=== PATIENT | female | born 1965 | race Caucasian/White ===

== ENCOUNTER 2024-07-27 23:37 | Emergency (ER) | payer MEDICAID ==
[~2024-07-27] VITALS: Ht 157.5 cm; Wt 59.0 kg
[2024-07-28] MEDS ORDERED: dexaMETHasone SOD PHOSPHATE 1 ML ONE (00:29)
[2024-07-28] MEDS: dexaMETHasone SOD PHOSPHATE 4 MG/ML VIAL IM ONE (00:30)
[2024-07-28 00:43] LABS: BASOPHILS % (AUTO) 0.6 % (0.0-2.0); EOSINOPHILS # (AUTO) 0.5 K/uL (0.0-0.7); EOSINOPHILS % (AUTO) 7.6 % (0.0-6.0); HEMATOCRIT 42 % (33-45); HEMOGLOBIN 14.1 g/dL (11.5-14.8); LYMPHOCYTES % (AUTO) 32.2 % (20.0-44.0); MEAN CORPUSCULAR HEMOGLOBIN 31 PG (26.0-33.0); MEAN CORPUSCULAR HGB CONC 33 g/dl (31.0-36.0); MEAN CORPUSCULAR VOLUME 93 fL (82-100); MONOCYTES # (AUTO) 0.5 K/uL (0.1-1.30); MONOCYTES % (AUTO) 7.3 % (2.0-12.0); NEUTROPHILS # (AUTO) 3.2 K/uL (1.8-8.9); NEUTROPHILS % (AUTO) 52.3 % (43.0-81.0); PLATELET COUNT (AUTO) 227 K/uL (150-450); RED BLOOD CELL COUNT(AUTO) 4.55 MIL/uL (4.0-5.2); RED CELL DISTRIBUTION WIDTH 13.8 % (11.5-15.0); WHITE BLOOD COUNT (AUTO) 6.2 K/uL (4.3-11.0)
[2024-07-28 00:57] LABS: CALCIUM, SERUM 8.8 mg/dL (8.5-10.1); CREATININE 0.6 mg/dL (0.6-1.3); POTASSIUM 3.9 mmol/L (3.5-5.1)
[2024-07-28] MEDS ORDERED: SULF1TAB48 PO (01:20)
[2024-07-28] MEDS ORDERED: CEPH-570 PO (01:20)
[2024-07-28] MEDS ORDERED: CEPHALEXIN MONOHYDRATE 500 MG CAPSULE PO ONE (01:28)
[2024-07-28] MEDS: CEPHALEXIN MONOHYDRATE 500 MG CAPSULE PO ONE (01:29)
[2024-07-28] MEDS ORDERED: SULFAMETH/TRIMETH 800/160 MG 1 UDTAB TABLET ONE (01:29)
[2024-07-28] MEDS: SULFAMETH/TRIMETH 800/160 MG 1 UDTAB TABLET PO ONE (01:29)
[2024-07-28 01:37] VITALS: BP 139/85; TEMP 98.2; O2SAT 99
== END 2024-07-28 01:40 | disposition home or self-care (01) ==
LOC: ER 23:52
DX: L03.211 Cellulitis of face (principal); H05.223 Edema of bilateral orbit
CPT/HCPCS: 99285; 70450; 96372; 85025; 80048; 36415; J1100

== ENCOUNTER 2024-08-23 20:33 | Emergency (ER) | payer MEDICAID ==
[~2024-08-23] VITALS: Ht 162.6 cm; Wt 68.0 kg
[~2024-08-23 20:33] MED LIST: CEPH-570 PO; SULF1TAB48 PO
[2024-08-23] MEDS ORDERED: PRED50TA PO (21:49)
[2024-08-23 22:38] VITALS: BP 110/66; TEMP 98; O2SAT 98
== END 2024-08-23 22:40 | disposition home or self-care (01) ==
LOC: ER 20:35
DX: L23.9 Allergic contact dermatitis, unspecified cause (principal); Z79.52 Long term (current) use of systemic steroids